=== PATIENT | female | born 1980 ===

== ENCOUNTER 2018-05-29 13:37 | Emergency (ER) | payer MEDICAID ==
[2018-05-29 13:54] VITALS: BMI 26.6
[2018-05-29 13:55] VITALS: RESP 18
--- NOTE | 2018-05-29 15:52 | ED PDOC ---
Arrival/HPI - General Chief Complaint: Medical Clearance Time Seen by Provider: 05/29/18 13:37 Historian: Patient, Police - History of Present Illness Narrative History of Present Illness (Text): 05/29/18 15:49 38-year-old female presents today brought in by police for medical clearance. Patient claims to be 7 months . She denies any complaints. Denies suicidal or homicidal ideation. Denies anxiety or depression. Denies abdominal pain or contractions. No leakage of fluid. Patient states she is supposed to take methadone daily but did not take her dose today. Patient admits to using heroin and cocaine yesterday. Past Medical History - Provider Review Nursing Documentation Reviewed: Yes - Travel History Have you recently traveled outside [place] w/in the past 3 mons?: No - Infectious Disease Hx of Infectious Diseases: None - Psychiatric Hx Substance Use: Yes (Cocaine & Heroin) Family/Social History - Physician Review Nursing Documentation Reviewed: Yes Family/Social History: Unknown Family HX Smoking Status: Never Smoked Hx Alcohol Use: No Hx Substance Use: Yes (Cocaine & Heroin) Allergies/Home Meds Allergies/Adverse Reactions: Allergies No Known Allergies Allergy (Verified 05/29/18 14:03) Home Medications: Home Meds Medication Instructions Recorded Confirmed Methadone 85 mg PO DAILY 05/29/18 05/29/18 Review of Systems - Review of Systems Constitutional: absent: Fatigue, Fevers Respiratory: absent: SOB, Cough Cardiovascular: absent: Chest Pain, Palpitations Gastrointestinal: absent: Abdominal Pain, Constipation, Diarrhea, Nausea, Vomiting Genitourinary Female: absent: Dysuria, Frequency, Hematuria Musculoskeletal: absent: Arthralgias, Back Pain, Neck Pain Skin: absent: Rash, Pruritis Neurological: absent: Headache Psychiatric: absent: Anxiety, Depression, Suicidal Ideation Physical Exam Vital Signs Reviewed: Yes Vital Signs Temp Pulse Resp BP Pulse Ox 05/29/18 13:54 97.9 F 68 18 119/76 96 Temperature: Afebrile Blood Pressure: Normal Pulse: Regular Respiratory Rate: Normal Appearance: Positive for: Well-Appearing, Non-Toxic, Comfortable Pain Distress: None Mental Status: Positive for: Alert and Oriented X 3 - Systems Exam Head: Present: Atraumatic Mouth: Present: Moist Mucous Membranes Neck: Present: Normal Range of Motion Respiratory/Chest: Present: Clear to Auscultation, Good Air Exchange. No: Respiratory Distress, Accessory Muscle Use Cardiovascular: Present: Regular Rate and Rhythm, Normal S1, S2. No: Murmurs Abdomen: No: Tenderness, Distention, Peritoneal Signs, Rebound, Guarding Upper Extremity: Present: Normal ROM Lower Extremity: Present: Normal ROM Neurological: Present: GCS=15 Skin: Present: Warm, Dry, Normal Color. No: Rashes Psychiatric: Present: Alert, Oriented x 3. No: Depressed Mood, Suicidal Ideation, Homicidal Ideation Medical Decision Making ED Course and Treatment: 05/29/18 15:50 38yr old female presents today for medical clearance. pt denies any complaints. vitals stable. Patient eating and drinking fluids in the ER. no distress. No vomiting US: FINDINGS: Transverse presentation. Anterior placenta. No evidence of abruption or previa Gestational age derived from LMP unknown Gestational age derived from the following biometric parameters 25 weeks 2 days. MINDI 09/09/2018. Biparietal diameter 6.28 cm Head circumference 22.63 cm Abdominal circumference 214 cm Femur length 458 cm Estimated weight 8516 g Calculated cardiac rate 1 5 beats per min. Closed cervix measuring 3.82 cm IMPRESSION: Twenty-five weeks 2 days live intrauterine gestation. Transverse presentation Anterior placenta. Patient reassessment: Vital signs are stable. Patient denies any complaints. Patient is medically cleared for incarceration. Patient is to be discharged into police custody. Impression: Medical clearance, follow up with the primary care physician within the next 2 days. Follow up with the FISCAL ASSISTANT within the next 2 days. return if any concerning symptoms develop. take vitamins daily - RAD Interpretation Radiology Orders: 05/29/18 14:07 AGE [US] Stat Disposition/Present on Arrival - Present on Arrival Any Indicators Present on Arrival: No History of DVT/PE: No History of Uncontrolled Diabetes: No Urinary Catheter: No History of Decub. Ulcer: No History Surgical Site Infection Following: None - Disposition Have Diagnosis and Disposition been Completed?: Yes Diagnosis: Medical clearance for incarceration, Disposition: RELEASED IN POLICE CUSTODY Disposition Time: 15:52 Patient Plan: Discharge Patient Problems: Current Active Problems Problem Status Onset Medical clearance for incarceration Acute Condition: GOOD Additional Instructions: Follow up with the primary care physician within the next 2 days. Follow up with the FISCAL ASSISTANT within the next 2 days. take vitamins daily return if any concerning symptoms develop. Patient is medically cleared for incarceration Referrals: Lea Tripp MD [Medical Doctor] - [facility] [Outside] - Follow up with primary [facility] [Outside] - Follow up with primary Sofi Fuller MD [Medical Doctor] - Follow up with primary Forms: [employer] (Faroese)
--- NOTE | 2018-05-29 17:13 | US ---
Date of service: 05/29/2018 PROCEDURE: ultrasound HISTORY: COMPARISON: None TECHNIQUE: Standard protocol for this study/examination. FINDINGS: Transverse presentation. Anterior placenta. No evidence of abruption or previa Gestational age derived from LMP unknown Gestational age derived from the following biometric parameters 25 weeks 2 days. MINDI 09/09/2018. Biparietal diameter 6.28 cm Head circumference 22.63 cm Abdominal circumference 214 cm Femur length 458 cm Estimated weight 8516 g Calculated cardiac rate 1 5 beats per min. Closed cervix measuring 3.82 cm IMPRESSION: Twenty-five weeks 2 days live intrauterine gestation. Transverse presentation Anterior placenta.
[2018-05-29 17:26] VITALS: BP 109/66; TEMP 98
[2018-05-29 17:49] VITALS: PULSE 66; O2SAT 98
== END 2018-05-29 17:47 ==
LOC: ED 13:37
DX: O26.893 Other specified pregnancy related conditions, third trimester (principal); Z3A.28 28 weeks gestation of pregnancy; Z02.89 Encounter for other administrative examinations